=== PATIENT | female | born 1985 | race Caucasian/White ===

== ENCOUNTER 2018-10-02 13:32 | Emergency (ER) | payer SELFPAY ==
[2018-10-02] MEDS ORDERED: Ketorolac Tromethamine 60 MG/2 ML VIAL ONE (13:48)
== END 2018-10-02 14:35 | disposition short-term general hospital (02) ==
LOC: BURERS 13:32
DX: M79.661 Pain in right lower leg (principal); F17.210 Nicotine dependence, cigarettes, uncomplicated; F41.9 Anxiety disorder, unspecified; F31.9 Bipolar disorder, unspecified
CPT/HCPCS: 96372; J1885

== ENCOUNTER 2019-04-02 09:15 | Emergency (ER) | payer SELFPAY ==
[2019-04-02] MEDS ORDERED: methylPREDNISolone Sod Succ/PF 125 MG/2 ML VIAL ONE (09:41)
== END 2019-04-02 09:46 | disposition home or self-care (01) ==
LOC: BURERS 09:15
DX: M54.16 Radiculopathy, lumbar region (principal); K21.9 Gastro-esophageal reflux disease without esophagitis; F41.9 Anxiety disorder, unspecified; F32.9 Major depressive disorder, single episode, unspecified; F17.210 Nicotine dependence, cigarettes, uncomplicated
CPT/HCPCS: 96372; 99283; J2930

== ENCOUNTER 2019-10-03 18:52 | Emergency (ER) | payer MEDICAID | END 2019-10-03 19:15 | disposition home or self-care (01) | LOC: BURERS 18:52 | DX: K02.9 Dental caries, unspecified (principal); F41.9 Anxiety disorder, unspecified; F32.9 Major depressive disorder, single episode, unspecified; F17.210 Nicotine dependence, cigarettes, uncomplicated; K21.9 Gastro-esophageal reflux disease without esophagitis; Z79.899 Other long term (current) drug therapy | CPT/HCPCS: 99281 ==

== ENCOUNTER 2019-10-28 15:42 | Outpatient (CLI) | payer OTHER ==
--- NOTE | 2019-10-28 20:06 | RAD ---
CHEST TWO VIEWS: Date: 10-28-2019 Comparison: 08-31-15 FINDINGS: In general, the lung markings seem marginally more prominent today than previously. This may be the p atient's current norm, but can also be seen in cases of bronchitis, viral infections and mycoplasmal infections. There are no lobar consolidations or effusions. The findings are reasonably symmetrical b etween the two lungs. The upper lobes are clear. The heart is normal in size. IMPRESSION: Very mild prominence of some of the lower lobe markings compared to before. POS: HOME
== END 2019-10-28 15:43 | disposition home or self-care (01) ==
LOC: BURRAD 15:42
PROVIDERS: ATTEND Physician Assistant
DX: R05 Cough (principal); R91.8 Other nonspecific abnormal finding of lung field
CPT/HCPCS: 71046

== ENCOUNTER 2021-04-29 09:22 | Outpatient (CLI) | payer OTHER | END 2021-04-29 09:23 | disposition home or self-care (01) | LOC: BURRAD 09:22 | PROVIDERS: ATTEND Physician Assistant | DX: M54.41 Lumbago with sciatica, right side (principal) | CPT/HCPCS: 72070; 72100 ==

== ENCOUNTER 2021-05-11 16:38 | Outpatient (CLI) | payer OTHER | END 2021-05-11 16:39 | disposition home or self-care (01) | LOC: BURRAD 16:38 | PROVIDERS: ATTEND Physician Assistant | DX: M54.50 Low back pain, unspecified (principal) | CPT/HCPCS: 72100 ==